=== PATIENT | male | born 1950 | race Two or more races ===

== ENCOUNTER 2016-08-31 11:43 | Day surgery (SDC) | payer OTHER ==
--- NOTE | 2016-08-25 23:48 | HP ---
PREOPERATIVE HISTORY AND PHYSICAL: DATE OF OFFICE VISIT: 08/25/16 DATE OF SURGERY: 08/31/16 - [facility] ATTENDING SURGEON: Kaleb Leong MD (DICTATED BY MONICA MONTGOMERY) PROCEDURE: Left hip removal of hardware. CHIEF COMPLAINT: Left hip pain. HISTORY OF PRESENT ILLNESS: Huy is a 66-year-old male who presents to the clinic for followup over work-related injury from last September that resulted in a left hip fracture, treated with cannulated screws. 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 He has failed conservative measures and has therefore agreed to undergo a left hip removal of hardware with Dr. Leong on 08/31/16. PAST MEDICAL HISTORY: Heart murmur. PAST SURGICAL HISTORY: Hip surgery, rhinoplasty, and kidney stone. MEDICATIONS: Percocet 5/325 mg 1 by mouth every 8 hours as needed for pain. ALLERGIES: No known drug allergies. FAMILY HISTORY: Positive for heart murmur. SOCIAL HISTORY: He is a current smoker, reports smokes more than 10 cigarettes a day. He denies alcohol use. REVIEW OF SYSTEMS: General: Negative for fever, chills, or night sweats. No known anesthesia problems. HEENT: Negative for headache, lightheadedness, or syncopal episodes. Integumentary: Negative for abrasions, lesions, or open wound. Cardiothoracic: Negative for chest pain, palpitations, or edema. Positive for heart murmur. Negative for hypertension. Pulmonary: Negative for shortness of breath with exertion, chronic cough, or COPD. GI: Negative for nausea, vomiting, diarrhea, or GERD. : Negative for nocturia or urinary frequency. Positive for history of kidney stones. Musculoskeletal: Positive for the current complaint. Neuro: Negative for numbness and tingling, history of seizure, stroke, or epilepsy. Endocrine: Negative for diabetes or thyroid issues. Heme: Negative for easy bruising, excessive bleeding, bleeding disorder, or history of DVT or PE. Infectious Disease: Negative for history of MRSA. PHYSICAL EXAMINATION GENERAL: A well-developed, well-nourished 66-year-old male, in no acute distress. Alert and oriented x3. Appropriate mood and affect. VITALS : Height 74, weight 165, blood pressure 165/97, respiratory rate 14, temperature 99, and BMI 21.2. HEENT: Normocephalic, atraumatic. PERRLA. NECK: Supple. Throat clear. PULMONARY: Lungs are clear to auscultation bilaterally. No wheezing, rhonchi, or rales. CARDIO: Regular rate and rhythm. S1, S2. No murmurs, gallops, or rubs. No edema. ABDOMEN: Positive bowel sounds. Soft and nontender. MUSCULOSKELETAL: Left hip well-healed surgical incision, prominent screws that are palpable. Tenderness to palpation over the hardware. Calf is soft and nontender. Full range of motion of the hip with some discomfort; +2 dorsalis pedis and posterior tibialis pulses. Sensation intact to light touch distally. NEURO: Alert and oriented x3. Cranial nerves grossly intact. Sensation intact to light touch. DIAGNOSTIC STUDIES/LAB DATA: CT of the left hip revealed no change in alignment of the hardware. The fracture was interval healing. 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 The screws are well positioned, but prominent. IMPRESSION: Left hip symptomatic hardware. PLAN/RECOMMENDATIONS: The patient is scheduled to undergo a left hip removal of hardware with Dr. Leong on 08/31/16. He will return to the office in 10 to 14 days postop for followup and suture removal. Percocet will be used postoperatively for pain management. MONICA MONTGOMERY [id number]/[facility] #: [id number] MTDD
[~2016-08-31 11:43] MED LIST: Dexamethasone IV* 4 MG/ML 1 ML (4 MG) IV SLOW PU ONE; Famotidine IV* 10 MG/ML 2 ML (20 mg) IV ONE
[2016-08-31] MEDS ORDERED: Famotidine IV* 10 MG/ML 2 ML (20 mg) ONE (12:10)
[2016-08-31] MEDS ORDERED: ceFAZolin 2 GM PREMIX(*) 2 GM/50 ML BAG IVPB ONE (12:11)
[2016-08-31] MEDS ORDERED: Buffered Lidocaine 1% SYRIN* 5 ML/SYR SYRINGE ONE (12:11)
[2016-08-31] MEDS ORDERED: Dexamethasone IV* 4 MG/ML 1 ML (4 MG) ONE (12:11)
[2016-08-31] MEDS ORDERED: Levalbuterol 0.63MG/3ML NEB INH ONE (13:44)
[2016-08-31] MEDS ORDERED: fentaNYL* 50 MCG/ML 2 ML VIAL (100 MCG VIAL) IV PRN (13:53)
[2016-08-31] MEDS ORDERED: HYDROmorphone* 1 MG/ML 1 ML SYR IV PRN (13:53)
[2016-08-31] MEDS ORDERED: Ondansetron INJ* 2 MG/ML VIAL IV PRN (13:54)
[2016-08-31] MEDS ORDERED: Midazolam* 1 MG/ML 5 ML VIAL (5 MG) ONE (14:01)
[2016-08-31] MEDS ORDERED: fentaNYL* 50 MCG/ML 2 ML VIAL (100 MCG VIAL) ONE (14:01)
[2016-08-31] MEDS ORDERED: Propofol* 10 MG/ML 20 ML BTL IV PUSH ONE (14:02)
[2016-08-31] MEDS ORDERED: Chloroprocaine 2%* 20 ML VIAL ONE (14:02)
[2016-08-31] MEDS ORDERED: Ondansetron INJ* 2 MG/ML VIAL ONE (14:02)
[2016-08-31] MEDS ORDERED: Ketorolac INJ* 30 MG/ML 1 ML VIAL ONE (14:02)
[2016-08-31] MEDS ORDERED: Levalbuterol 1.25MG/0.5ML NEB ONE (14:03)
[2016-08-31] MEDS ORDERED: Bupivacaine 0.25% SDV* 30 ML ONE (14:04)
--- NOTE | 2016-08-31 15:24 | RAD ---
CPT II Codes: 6045F INDICATION: Removal of hardware from the left hip. Approximately 9.4 seconds of fluoroscopy time was used. 7 spot images demonstrates removal of hardware from left hip internal fixation. IMPRESSION: Fluoroscopic services provided for referring physician for hardware removal from the left hip.
[2016-08-31] MEDS ORDERED: oxyCODONE/Acetamin 5/325 MG* TAB ONE (16:27)
[2016-08-31] MEDS: oxyCODONE/Acetamin 5/325 MG* TAB PO PRN ×2 (16:30→16:31)
[2016-08-31 16:50] VITALS: BP 148/79
--- NOTE | 2016-09-03 09:25 | OP ---
OPERATIVE REPORT: DATE OF OPERATION: 08/31/16 DATE OF : 52 SURGEON: Kaleb Leong MD BURLESQUE DANCER: MONICA Pacheco ANESTHESIOLOGIST: Dr. Martin Catherine. ANESTHESIA: Spinal, local MAC. PRE-OPERATIVE DIAGNOSIS: Left hip symptomatic hardware. POST-OPERATIVE DIAGNOSIS: Left hip symptomatic hardware. OPERATIVE PROCEDURE: Left hip removal of symptomatic hardware with debridement of the IT band. ESTIMATED BLOOD LOSS: Minimal. COMPLICATIONS: None. DISPOSITION: Stable to PACU. INDICATION: Huy Arellano is a 66-year-old male who approximately 1 year ago, underwent a work-re lated injury to his hip and shoulder. He sustained a nondisplaced femoral neck fracture. He underw ent percutaneous pinning and he did well, although he is a very thin gentleman and had subsequent ir ritation from the screws that were rubbing against his IT band. He was unable to wean off of a cane or walker. He failed conservative management and after obtaining CT scan to confirm healing, he tolbert s elected to proceed with removal of hardware. Risks and benefits were discussed at length and they include, but are not limited to, bleeding, infection, damage to nerves, vessels, surrounding struct ures, the wound not healing, persistent pain, need for further surgery, scarring, incomplete relief of symptoms, risk of re-fracture, AVN, risk of DVT, and risks of anesthesia. He has elected to proc eed. DESCRIPTION OF PROCEDURE: The patient was greeted in the preoperative area by the attending surgeon . The correct extremity was marked and consent was confirmed. The patient was then brought to the o perative suite where he was sat up and underwent spinal anesthesia, after which the left leg was pre pped and draped in the usual sterile fashion. After x-ray was positioned and a bump was placed unde r the hip, the left leg was finally prepped with ChloraPrep. After appropriate surgical pause indicating side, site, and procedure, administration of antibiotics , the previous incision was made and extended proximally. The IT band was identified and incised in line. The screws were palpable and identified. The scar tissue was removed with electrocautery de vice. Each of the 3 screws were identified and removed in their entirety. There were no broken scre ws. The C-arm was then used to confirm this and then the hip was taken through range of motion and there was no evidence of displacement. Once this was complete, the wound was copiously irrigated. The IT band was closed with 0 Vicryl in interrupted fashion. The skin was closed in layers with 2-0 Vicryl and 0 Monocryl. Sterile dressings were applied. The wound was injected with 30 cc of 0.25% Marcaine plain. He was awoken from anesthesia, transferred to PACU in stable condition. POSTOPERATIVE PLAN: He will be protective weightbearing by 50% weightbearing. He will be using a w alker. Ice and elevate as needed. He will be discharged on pain medications as well as antibiotics . I will see the patient back in 10 to 14 days. [id number]/[facility] #: [id number]
== END 2016-08-31 17:05 | disposition home or self-care (01) ==
LOC: OR 11:43
PROVIDERS: ATTEND Orthopaedic Surgery
DX: T84.84XA Pain due to internal orthopedic prosthetic devices, implants and grafts, initial encounter (principal); Y83.1 Surgical operation with implant of artificial internal device as the cause of abnormal reaction of the patient, or of later complication, without mention of misadventure at the time of the procedure; F17.210 Nicotine dependence, cigarettes, uncomplicated; S72.002D Fracture of unspecified part of neck of left femur, subsequent encounter for closed fracture with routine healing
CPT/HCPCS: 88300; A9270-GY; J0690; J1100; J1885; J2250; J2400; J2405; J2704; J3010

== ENCOUNTER 2018-11-07 11:00 | Day surgery (SDC) | payer MEDICARE, OTHER ==
[2018-10-24 13:54] VITALS: BP 138/68
[~2018-11-07 11:00] MED LIST changes: +Acetaminophen TAB* 325 MG PO PRN; +Buffered Lidocaine 1% SYRIN* 1 ML/SYRINGE INTRADERM ONE; +Cyclopentolate 1% OPTH.SOL* 2 ML BTL ONE; -Dexamethasone IV* 4 MG/ML 1 ML (4 MG) IV SLOW PU ONE; -Famotidine IV* 10 MG/ML 2 ML (20 mg) IV ONE; +Ketorolac 0.5% OPHTH (NF) 0.5 % 5 ML BTL ONE; +Lidocaine 1% MPF ** 5 ML VIAL ONE; +Lidocaine 2% w/ EPI 1:200,000* 20 ML VIAL ONE; +Neomycin/Polymy/Dex OPTH.SUSP* MAXITROL 0.1% 5 ML ONE; +Phenylephrine OPHTH SOL 2.5%* 2 ML ONE; +Povidone Iodine 5% OPTH* 30 ML BTL ONE; +Proparacaine 0.5% OPHTH.SOL* 15 ML BTL ONE; +acetaZOLAMIDE TAB* 250 MG ONE
[2018-11-07] MEDS ORDERED: Midazolam* 1 MG/ML 2 ML VIAL (2 MG) ONE (12:05)
[2018-11-07] MEDS ORDERED: fentaNYL* 50 MCG/ML 2 ML VIAL (100 MCG VIAL) ONE (12:05)
--- NOTE | 2018-11-07 14:55 | OP ---
DATE OF OPERATION: 11/07/18 [facility] DATE OF : 52 SURGEON: Martin Omer MD PREOPERATIVE DIAGNOSIS: Cataract, left eye. POSTOPERATIVE DIAGNOSIS: Cataract, left eye. OPERATIVE PROCEDURE: Extracapsular cataract extraction with intraocular lens implant, left eye. DESCRIPTION OF PROCEDURE: The patient was brought to the operating room after being given 1/2% Alcaine with epinephrine drops in the preoperative area. The eye was prepped and draped in the usual sterile fashion. Sterile drape and eyelid speculum were placed. Again, topical 1/2% Alcaine with epinephrine was given. A paracentesis incision was made at the 3 o'clock position with the No.75 blade. Clear cornea incision 2.2 x 2.2-mm was created at the 6 o'clock position starting at the anterior limbus using the 2.2-mm keratome. The anterior chamber was irrigated with 0.4 mL of 1% non-preservative intracameral lidocaine and filled with DisCoVisc. A capsulorrhexis was completed using the cystotome and the Utrata forceps. Hydrodissection was performed with balanced salt solution. The lens nucleus was removed with the Phacoemulsification handpiece without incident. Cortex was removed with the irrigation-aspiration handpiece. The capsular bag was re-inflated using DisCoVisc and an [id number] implant was inserted with the shooter. The irrigation-aspiration handpiece was used to remove all residual DisCoVisc. The eye was refilled with balanced salt solution and the wound checked and found to be watertight. Topical Maxitrol drops were given. [id number]/[facility] #: [id number] [facility]
== END 2018-11-07 13:20 | disposition home or self-care (01) ==
LOC: OREAST 11:00
PROVIDERS: ATTEND Specialist
DX: H25.812 Combined forms of age-related cataract, left eye (principal); H43.813 Vitreous degeneration, bilateral; F17.210 Nicotine dependence, cigarettes, uncomplicated; I10 Essential (primary) hypertension; E78.5 Hyperlipidemia, unspecified
CPT/HCPCS: A9270-GY; J2250; J3010; V2632

== ENCOUNTER 2024-04-10 15:10 | Inpatient (IN) ==
[2024-04-10] MEDS: Lactated Ringers SEPSIS* BAG 2,400 ML IV ONE (16:17)
[2024-04-10 16:21] LABS: ABS Lymphocytes 0.8 10^3/uL (1.0-4.8); ABS Monocytes 0.8 10^3/uL (0.0-1.1); ABS Neutrophils 5.3 10^3/uL (1.5-7.6); Eosinophil % 0.1 %; Hematocrit 31.5 % (38-53); Hemoglobin 9.4 g/dL (13.2-16.3); Lymphocyte % 12.1 %; Mean Corpuscular Hemoglobin 22.8 pg (27-33); Mean Corpuscular Hgb Conc 29.9 g/dL (31-36); Mean Corpuscular Volume 76.1 fL (80-97); Mean Platelet Volume 8.4 fL (7.5-11.2); Platelet Count 484 10^3/uL (150-450); Red Blood Count 4.14 10^6/uL (4.06-5.63); Red Cell Distribution Width 18.9 % (12-17); White Blood Count 6.9 10^3/uL (3.6-10.2)
[2024-04-10] MEDS: Piperacillin/Tazobac 3.375 BAG 3.375 GM/100 ML BAG IV ONE (16:40)
[2024-04-10] MEDS: Clindamycin 600 MG/D5W BAG 600 MG/50 ML BAG IV ONE (16:48)
[2024-04-10 16:49] LABS: Activated Partial Thrombo Time 23.1 seconds (26.0-38.0); INR 1.35 (0.85-1.14)
[2024-04-10 17:06] LABS: ALT 28 U/L (7-52); Albumin 3.2 g/dL (3.5-5.7); Albumin/Globulin Ratio 1.1 (1-3); Alkaline Phosphatase 129 U/L (35-149); Anion Gap 12 mmol/L (2-16); Blood Urea Nitrogen 18 mg/dL (6-24); C Reactive Protein 112.23 mg/L (<8.01); CO2 Carbon Dioxide 24 mmol/L (22-32); Calcium 8.6 mg/dL (8.6-10.3); Chloride 104 mmol/L (101-111); Creatinine, Serum 1.52 mg/dL (0.67-1.17); Globulin 2.9 g/dL (2-4); Glucose 120 mg/dL (70-100); Sodium 140 mmol/L (135-145); Total Bilirubin 0.7 mg/dL (0.2-1.0); Total Protein 6.1 g/dL (6.4-8.9); eGFR CKD-EPI 48.1 (>60)
[2024-04-10] MEDS: Iodixanol 320 (CONTRAST) 100 ML SDV IV ONE (17:35)
[2024-04-10] MEDS: Vancomycin 1,250 MG in NS 0.9% 250 ml 250 ML IVPB ONE (18:01)
[2024-04-10 20:09] LABS: AST Redraw 30 U/L (13-39); Potassium Redraw 3.4 mmol/L (3.5-5.0)
[2024-04-10] MEDS: Enoxaparin 30 MG/0.3 ML SYR SUBCUT SCH (22:16)
[2024-04-10] MEDS: Potassium Chlor 20 meq TAB.ER PO ONE (22:17)
[2024-04-10 22:33] LABS: % Iron Saturation 7 % (15-55); .Transferrin 216 mg/dL (203-362); Iron < 20 ug/dL (50-212); Magnesium 1.7 mg/dL (1.9-2.7); Total Iron Binding Capacity 302 mcg/dL (250-450); Unsaturated Iron Binding 282 ug/dL
[2024-04-10 22:54] LABS: Ferritin 20.1 ng/mL (24-336)
[2024-04-10] MEDS ORDERED: ZOSYN 3.375 GM x ONE DOSE over 30 miuntes IV (23:00)
[2024-04-10] MEDS ORDERED: Zosyn per Pharmacy NOTE FOLLOW UP SCH (23:00)
[2024-04-11] MEDS: Furosemide 40 mg/4 ml IV VIAL IV SLOW PU ONE (00:28)
[2024-04-11] MEDS: Magnesium Sulfate 2 gm BAG 2 GM/50 ML BAG IVPB ONE (00:28)
[2024-04-11] MEDS: ZOSYN 3.375 GM x ONE DOSE over 30 miuntes IV (00:43)
[2024-04-11 01:28] LABS: Urine Appearance Extra Turbid; Urine Bilirubin Negative (Negative); Urine Blood 2+ (Negative); Urine Color Yellow; Urine Glucose Negative (Negative); Urine Ketones Negative (Negative); Urine Nitrite Negative (Negative); Urine Protein 1+ (>=30 mg/dL) (Negative); Urine Specific Gravity 1.038 (1.002-1.030); Urine Urobilinogen Negative (Negative)
[2024-04-11 01:48] LABS: Urine Bacteria Absent /HPF (Absent); Urine Red Blood Cell 2+(6-10/hpf) /HPF (0-Trace); Urine White Blood Cell 3+(>20/hpf) /HPF (0-Trace)
[2024-04-11 03:08] LABS: ABS Eosinophils 0.1 10^3/uL (0.0-0.5); ABS Monocytes 0.8 10^3/uL (0.0-1.1); Eosinophil % 1.6 %; Hematocrit 32.3 % (38-53); Hemoglobin 9.6 g/dL (13.2-16.3); Lymphocyte % 12.7 %; Mean Corpuscular Hemoglobin 23.6 pg (27-33); Mean Corpuscular Hgb Conc 29.8 g/dL (31-36); Mean Corpuscular Volume 79.2 fL (80-97); Mean Platelet Volume 8.2 fL (7.5-11.2); Platelet Count 414 10^3/uL (150-450); Red Blood Count 4.07 10^6/uL (4.06-5.63); White Blood Count 8.1 10^3/uL (3.6-10.2)
[2024-04-11 03:33] LABS: Calcium 8.4 mg/dL (8.6-10.3); Creatinine, Serum 1.42 mg/dL (0.67-1.17); Potassium 3.7 mmol/L (3.5-5.0); eGFR CKD-EPI 52.2 (>60)
[2024-04-11] MEDS: ZOSYN 3.375 GM Q8H per EXTENDED INFUSION IV SCH (05:28)
[2024-04-11 08:14] LABS: Magnesium 2.2 mg/dL (1.9-2.7)
[2024-04-11] MEDS: Sulfur Hexaflouride MICROSPHR 25 MG VIAL IV PRN (10:15)
[2024-04-11] MEDS: Ferric Gluconate IV 250 MG in NS 0.9% 250 ml 200 ML IVPB SCH (10:32)
[2024-04-12 01:47] LABS: Calcium 8.1 mg/dL (8.6-10.3); Creatinine, Serum 1.32 mg/dL (0.67-1.17); Magnesium 1.8 mg/dL (1.9-2.7); Potassium 4.2 mmol/L (3.5-5.0)
[2024-04-12 05:54] LABS: ABS Basophils 0.1 10^3/uL (0.0-0.1); ABS Eosinophils 0.3 10^3/uL (0.0-0.5); ABS Lymphocytes 0.9 10^3/uL (1.0-4.8); ABS Monocytes 0.9 10^3/uL (0.0-1.1); ABS Neutrophils 6.1 10^3/uL (1.5-7.6); ABS Nucleated RBC 0.02 10^3/ul; Eosinophil % 3.8 %; Hematocrit 25.8 % (38-53); Hemoglobin 8.1 g/dL (13.2-16.3); Lymphocyte % 11.2 %; Mean Corpuscular Hemoglobin 23.6 pg (27-33); Mean Corpuscular Hgb Conc 31.4 g/dL (31-36); Mean Corpuscular Volume 75.1 fL (80-97); Mean Platelet Volume 8.3 fL (7.5-11.2); Nucleated Red Blood Cells % 0.2 %/100WBC (0.0-0.8); Platelet Count 355 10^3/uL (150-450); Red Blood Count 3.44 10^6/uL (4.06-5.63); Red Cell Distribution Width 18.6 % (12-17); White Blood Count 8.3 10^3/uL (3.6-10.2)
[2024-04-12 06:13] LABS: Calcium 8.2 mg/dL (8.6-10.3); Creatinine, Serum 1.36 mg/dL (0.67-1.17); Magnesium 1.7 mg/dL (1.9-2.7); Potassium 4.2 mmol/L (3.5-5.0); eGFR CKD-EPI 54.9 (>60)
[2024-04-12] MEDS: Magnesium Sulfate 2 gm BAG 2 GM/50 ML BAG IVPB ONE (09:34)
[2024-04-12 13:30] LABS: Hematocrit 29.8 % (38-53); Hemoglobin 8.9 g/dL (13.2-16.3)
[2024-04-13 05:57] LABS: Hematocrit 28.6 % (38-53); Hemoglobin 8.5 g/dL (13.2-16.3); Mean Corpuscular Hemoglobin 22.7 pg (27-33); Mean Corpuscular Hgb Conc 29.8 g/dL (31-36); Mean Corpuscular Volume 76.3 fL (80-97); Mean Platelet Volume 8.4 fL (7.5-11.2); Platelet Count 441 10^3/uL (150-450); Red Blood Count 3.75 10^6/uL (4.06-5.63); Red Cell Distribution Width 18.4 % (12-17); White Blood Count 11.3 10^3/uL (3.6-10.2)
[2024-04-13 06:15] LABS: Calcium 8.2 mg/dL (8.6-10.3); Creatinine, Serum 1.05 mg/dL (0.67-1.17); Magnesium 1.7 mg/dL (1.9-2.7); Potassium 5.3 mmol/L (3.5-5.0)
[2024-04-13 08:04] LABS: ABS Basophils 0.1 10^3/uL (0.0-0.1); ABS Eosinophils 0.6 10^3/uL (0.0-0.5); ABS Lymphocytes 1.2 10^3/uL (1.0-4.8); ABS Monocytes 1.1 10^3/uL (0.0-1.1); ABS Neutrophils 8.3 10^3/uL (1.5-7.6); ABS Nucleated RBC 0.02 10^3/ul; Eosinophil % 5.2 %; Lymphocyte % 10.6 %; Nucleated Red Blood Cells % 0.2 %/100WBC (0.0-0.8)
[2024-04-13] MEDS: Magnesium Sulfate IV 1GM/100ML 1 GM/100 ML BAG IV ONE (13:37)
[2024-04-13] MEDS: Magnesium Sulfate 2 gm BAG 2 GM/50 ML BAG IVPB ONE ×3 (13:37→20:17)
[2024-04-13 15:12] LABS: C Reactive Protein 45.32 mg/L (<8.01)
[2024-04-14] MEDS: Ferric Gluconate IV 250 MG in NS 0.9% 250 ml 200 ML IVPB SCH (01:29)
[2024-04-14 06:02] LABS: ABS Basophils 0.1 10^3/uL (0.0-0.1); ABS Eosinophils 0.3 10^3/uL (0.0-0.5); ABS Lymphocytes 1.1 10^3/uL (1.0-4.8); ABS Monocytes 1.1 10^3/uL (0.0-1.1); ABS Neutrophils 10.1 10^3/uL (1.5-7.6); ABS Nucleated RBC 0.02 10^3/ul; Eosinophil % 2.3 %; Hematocrit 29.1 % (38-53); Hemoglobin 8.7 g/dL (13.2-16.3); Lymphocyte % 8.8 %; Mean Corpuscular Hemoglobin 22.6 pg (27-33); Mean Corpuscular Volume 75.4 fL (80-97); Mean Platelet Volume 8.2 fL (7.5-11.2); Nucleated Red Blood Cells % 0.2 %/100WBC (0.0-0.8); Platelet Count 419 10^3/uL (150-450); Red Blood Count 3.86 10^6/uL (4.06-5.63); Red Cell Distribution Width 18.4 % (12-17); White Blood Count 12.6 10^3/uL (3.6-10.2)
[2024-04-14 06:36] LABS: Calcium 8.3 mg/dL (8.6-10.3); Creatinine, Serum 1.16 mg/dL (0.67-1.17); Magnesium 2.2 mg/dL (1.9-2.7); Potassium 5.7 mmol/L (3.5-5.0); eGFR CKD-EPI 66.5 (>60)
[2024-04-14] MEDS: SODIUM ZIRCONIUM CYCLOSILICATE 10 GM PACKET PO SCH (09:23)
[2024-04-14] MEDS: LEVOCETIRIZINE 5 MG PO SCH (22:14)
[2024-04-15 06:22] LABS: ABS Basophils 0.1 10^3/uL (0.0-0.1); ABS Eosinophils 0.3 10^3/uL (0.0-0.5); ABS Lymphocytes 1.3 10^3/uL (1.0-4.8); ABS Monocytes 0.9 10^3/uL (0.0-1.1); ABS Neutrophils 6.6 10^3/uL (1.5-7.6); ABS Nucleated RBC 0.01 10^3/ul; Eosinophil % 3.2 %; Hemoglobin 8.6 g/dL (13.2-16.3); Lymphocyte % 14.4 %; Mean Corpuscular Hemoglobin 22.9 pg (27-33); Mean Corpuscular Hgb Conc 29.7 g/dL (31-36); Mean Corpuscular Volume 77.2 fL (80-97); Mean Platelet Volume 8.3 fL (7.5-11.2); Nucleated Red Blood Cells % 0.1 %/100WBC (0.0-0.8); Platelet Count 370 10^3/uL (150-450); Red Blood Count 3.76 10^6/uL (4.06-5.63); Red Cell Distribution Width 18.8 % (12-17); White Blood Count 9.2 10^3/uL (3.6-10.2)
[2024-04-15 06:43] LABS: Calcium 8.1 mg/dL (8.6-10.3); Creatinine, Serum 1.1 mg/dL (0.67-1.17); Potassium 5.6 mmol/L (3.5-5.0); eGFR CKD-EPI 70.9 (>60)
[2024-04-15] MEDS: Furosemide 20 mg/2 ml IV VIAL IV SLOW PU ONE (11:00)
[2024-04-15 21:09] LABS: Calcium 8.6 mg/dL (8.6-10.3); Creatinine, Serum 1.21 mg/dL (0.67-1.17); Potassium 5.1 mmol/L (3.5-5.0); eGFR CKD-EPI 63.2 (>60)
[2024-04-16 06:07] LABS: ABS Basophils 0.1 10^3/uL (0.0-0.1); ABS Eosinophils 0.2 10^3/uL (0.0-0.5); ABS Lymphocytes 1.2 10^3/uL (1.0-4.8); ABS Monocytes 1.3 10^3/uL (0.0-1.1); ABS Neutrophils 10.5 10^3/uL (1.5-7.6); ABS Nucleated RBC 0.02 10^3/ul; Eosinophil % 1.2 %; Hematocrit 27.9 % (38-53); Hemoglobin 8.1 g/dL (13.2-16.3); Lymphocyte % 8.8 %; Mean Corpuscular Hemoglobin 22.9 pg (27-33); Mean Corpuscular Hgb Conc 29.2 g/dL (31-36); Mean Corpuscular Volume 78.4 fL (80-97); Mean Platelet Volume 8.1 fL (7.5-11.2); Nucleated Red Blood Cells % 0.1 %/100WBC (0.0-0.8); Platelet Count 349 10^3/uL (150-450); Red Blood Count 3.56 10^6/uL (4.06-5.63); Red Cell Distribution Width 19.1 % (12-17); White Blood Count 13.2 10^3/uL (3.6-10.2)
[2024-04-16] MEDS: cefTRIAXone 1 gm/50 mL D5W 1 GM/50 ML BAG IV SCH (12:29)
[2024-04-17 06:16] LABS: Hematocrit 32.2 % (38-53); Hemoglobin 9.8 g/dL (13.2-16.3); Mean Corpuscular Hemoglobin 24.1 pg (27-33); Mean Corpuscular Hgb Conc 30.5 g/dL (31-36); Mean Platelet Volume 8.6 fL (7.5-11.2); Platelet Count 395 10^3/uL (150-450); Red Blood Count 4.08 10^6/uL (4.06-5.63); Red Cell Distribution Width 18.9 % (12-17); White Blood Count 14.7 10^3/uL (3.6-10.2)
[2024-04-17 06:43] LABS: Calcium 8.8 mg/dL (8.6-10.3); Creatinine, Serum 1.17 mg/dL (0.67-1.17); Magnesium 2.3 mg/dL (1.9-2.7); Potassium 5.9 mmol/L (3.5-5.0); eGFR CKD-EPI 65.8 (>60)
[2024-04-17] MEDS: Furosemide 20 mg/2 ml IV VIAL IV SLOW PU ONE ×2 (10:13→12:28)
[2024-04-17 11:09] LABS: PCO2 Arterial 59 mmHg (35-45); PO2 Arterial 69 mmHg (80-100)
[2024-04-17 12:19] LABS: Anion Gap 7 mmol/L (2-16); Blood Urea Nitrogen 30 mg/dL (6-24); CO2 Carbon Dioxide 35 mmol/L (22-32); Calcium 8.6 mg/dL (8.6-10.3); Chloride 101 mmol/L (101-111); Creatinine, Serum 1.23 mg/dL (0.67-1.17); Glucose 116 mg/dL (70-100); Sodium 143 mmol/L (135-145)
[2024-04-17] MEDS: SODIUM ZIRCONIUM CYCLOSILICATE 10 GM PACKET PO ONE ×2 (12:23→17:17)
[2024-04-17] MEDS: Morphine 2 MG/ML SYRINGE IV PRN (16:38)
[2024-04-17 22:02] LABS: PCO2 Arterial 59 mmHg (35-45); PO2 Arterial 95 mmHg (80-100)
[2024-04-18 05:25] LABS: Hematocrit 30.4 % (38-53); Hemoglobin 9.3 g/dL (13.2-16.3); Mean Corpuscular Hemoglobin 24.6 pg (27-33); Mean Corpuscular Hgb Conc 30.5 g/dL (31-36); Mean Corpuscular Volume 80.5 fL (80-97); Mean Platelet Volume 8.7 fL (7.5-11.2); Platelet Count 343 10^3/uL (150-450); Red Blood Count 3.77 10^6/uL (4.06-5.63); Red Cell Distribution Width 19.3 % (12-17); White Blood Count 10.6 10^3/uL (3.6-10.2)
[2024-04-18 05:51] LABS: Calcium 8.5 mg/dL (8.6-10.3); Creatinine, Serum 1.22 mg/dL (0.67-1.17); Magnesium 2.3 mg/dL (1.9-2.7); Potassium 5.1 mmol/L (3.5-5.0); eGFR CKD-EPI 62.6 (>60)
[2024-04-18 09:53] VITALS: BP 119/78
[2024-04-18] MEDS ORDERED: Atropine 1% (ORAL/SL) 15 ML BTL SL PRN (11:26)
[2024-04-18] MEDS ORDERED: Ondansetron 4 mg VIAL 2 MG/ML 2 ml VIAL IV PRN (11:26)
[2024-04-18] MEDS ORDERED: Morphine 2 MG/ML SYRINGE IV PRN (11:31)
[2024-04-18] MEDS ORDERED: Lorazepam PYXIS KEY PRN (12:08)
[2024-04-18] MEDS: LORazepam 2 mg VIAL 1 ml IV PUSH PRN (12:50)
[2024-04-18] MEDS: Morphine 2 MG/ML SYRINGE IV PRN (13:22)
== END 2024-04-18 14:31 | disposition expired | DRG 871 ==
LOC: EDHOLD 15:10 → ED 15:10 → SUATTDRO 21:41 → MEDTELE 22:35 → SUATTDRO 04-12 13:57
PROVIDERS: ADMIT Internal Medicine; ATTEND Student in an Organized Health Care Education/Training Program